=== PATIENT | female | born 1985 | race Caucasian/White ===

== ENCOUNTER → 2021-11-19 | Outpatient (CLI) | payer OTHER ==
--- NOTE | 2021-11-19 16:29 | RAD ---
DIAGNOSTIC LEFT BREAST ULTRASOUND INDICATION: Left breast pain. Patient indicates that the left breast pain symptoms lasted from Decemb er to October but have resolved. COMPARISON: None available. FINDINGS: Ultrasound images of the left breast in the area of concern at the 6:00 radial demonstrate normal fib roglandular tissues. No mass or cyst is identified. Images of the left axilla are unremarkable. No maria spicious lymph nodes are identified. IMPRESSION: 1. No imaging evidence of malignancy. ASSESSMENT: BI-RADS 1: Negative. RECOMMENDATION: Routine annual screening mammogram. Recommend annual screening mammogram beginning at age 40. The facility will notify the patient of the results via mail. Patient information will be entered int o the mammography reminder system with a target recall date for the next mammogram. A reminder letter will be generated by the facility. Electronically signed by: Cory Michaud MD (11/19/2021 4:26 PM) [id number]
== END ==
LOC: MAMMO 13:11
PROVIDERS: ATTEND Nurse Practitioner Family
DX: N64.4 Mastodynia (principal)
CPT/HCPCS: 76641